=== PATIENT | female | born 1960 | race African-American/Black ===

== ENCOUNTER 2018-03-23 21:38 | Emergency (ER) | payer OTHER, BC ==
[2018-03-23 21:48] VITALS: BP 158/97
--- NOTE | 2018-03-24 00:08 | EDM.PDOC ---
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 difficile this past 03/19/2018. She states that she developed diarrhea that same day, which lasted 3 days. She had a subjective fever at the time, along with slight nausea, but no emesis. After 3 days, her symptoms resolved, and did not recur. Currently, she is completely asymptomatic. The patient reports that she has not been on any antibiotics since last year. The patient's PCP is Dr. Kirkpatrick. 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 Endocrine/Metabolic History: Reports: Obesity/BMI 30+ - Past Surgical History Female Surgical History: Reports: Hysterectomy, Salpingo-Oophorectomy Social & Family History - Family History Family Medical History: Noncontributory - Tobacco Use Smoking Status *Q: Never Smoker Second Hand Smoke Exposure: No - Caffeine Use Caffeine Use: Reports: Coffee - Alcohol Use Alcohol Use History: No - Recreational Drug Use Recreational Drug Use: No - Living Situation & Occupation Living situation: Reports: , with Spouse 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 ED EXAM, GENERAL - Physical Exam Exam: See Below Exam Limited By: No Limitations General Appearance: Alert, WD/WN, No Apparent Distress Eye Exam: Bilateral Eye: Normal Inspection Ears: Normal External Exam, Hearing Grossly Normal Nose: Normal Inspection, No Blood Throat/Mouth: Normal Inspection, Normal Lips, Normal Voice, No Airway Compromise Head: Atraumatic, Normocephalic Neck: Normal Inspection, Full Range of Motion Respiratory/Chest: No Respiratory Distress, Lungs Clear, Normal Breath Sounds, No Accessory Muscle Use Cardiovascular: Normal Peripheral Pulses, Regular Rate, Rhythm, No Gallop, No JVD, No Murmur, No Rub Peripheral Pulses: 4+: Radial (L), Radial (R) GI/Abdominal: Normal Bowel Sounds, Soft, Non-Tender, No Organomegaly, No Distention, No Abnormal Bruit, No Mass, Other (Obese) (Female) Exam: Deferred Rectal (Female) Exam: Deferred Back Exam: Normal Inspection, Full Range of Motion, NT Extremities: Normal Inspection, Normal Range of Motion, Non-Tender, Normal Capillary Refill, No Pedal Edema Neurological: Alert, Oriented, Normal Cognition, No Motor/Sensory Deficits Psychiatric: Normal Affect Skin Exam: Warm, Dry, Intact, Normal Color, No Rash Course - Vital Signs Last Recorded V/S: Last Vital Signs Temp 36.0 C 03/23/18 21:43 Pulse 58 L 03/23/18 21:43 Resp 18 03/23/18 21:43 BP 158/97 H 03/23/18 21:43 Pulse Ox 97 03/23/18 21:43 - Re-Assessments/Exams Free Text/Narrative Re-Assessment/Exam: 03/24/18 00:03 As above, the patient reports having 3 days of diarrhea after being exposed to C. difficile, however, she has not been on any antibiotics since last year, and her symptoms resolved spontaneously. She is currently asymptomatic. I explained to the patient that one does not get a C. difficile infection merely by being exposed to it, when not also exposed to antibiotics. I believe the patient understands the situation. Departure - Departure Time of Disposition: 00:04 Disposition: Home, Self-Care 01 Condition: Good Clinical Impression: Concern about disease without diagnosis - Discharge Information Referrals: Minh Kirkpatrick MD [Physician] - Forms: ED Department Discharge Additional Instructions: You were seen in the emergency room over concern of C. difficile infection after being exposed to C. difficile. As explained, one cannot get a C. difficile infection just by being exposed to C. difficile. Follow-up with your PCP, Dr. Brooks, as needed. If any other problems, please do not hesitate to return to the ER.
== END 2018-03-24 00:14 | disposition home or self-care (01) ==
LOC: JD.ED 21:38
DX: Z71.1 Person with feared health complaint in whom no diagnosis is made (principal); E78.00 Pure hypercholesterolemia, unspecified; I10 Essential (primary) hypertension; Z79.899 Other long term (current) drug therapy
CPT/HCPCS: 99284

== ENCOUNTER 2019-07-12 01:03 | Emergency (ER) | payer BC, OTHER ==
[2019-07-12 01:13] VITALS: PULSE 64
[2019-07-12] MEDS ORDERED: hydrALAZINE 20 MG/ML SDV IVPUSH ONE (01:28)
[2019-07-12] MEDS ORDERED: Sodium Chloride 0.9% 10 ML Syringe FLUSH PRN (01:28)
--- NOTE | 2019-07-12 01:28 | EDM.PDOC ---
ED HPI GENERAL MEDICAL PROBLEM - General Chief Complaint: Headache Stated Complaint: headache Time Seen by Provider: 07/12/19 01:20 Source of Information: Reports: Patient History Limitations: Reports: No Limitations - History of Present Illness INITIAL COMMENTS - FREE TEXT/NARRATIVE: 58-year-old female of -Citizen [place] ancestry presents to the ED with a persistent headache that worsens usually in the evenings for the last several days. It's been going on for about 2 weeks for sure. She believes it's partly due to side effects from her blood pressure medications which she is on too low. His use of one of the blood pressure medications cause quite significant headaches and she discontinued it. Was replaced with what she was on before on 02 July but she doesn't know the names of the medication. Once she takes twice daily for blood pressure control and 1 she takes once daily in the morning. His most time in the daytime her headache is tolerable. Usually headache worsens in the evening between 2000 and 2:00 in the morning. Today it' s diffuse headache pressure throbbing pounding or pressure is elevated at 190/ 112. She has no visual field changes. She doesn't feel off balance or kilter. No associated nausea or vomiting. She believes it's due to side effect of her medication. Back or else the blood pressure itself is poorly controlled. Onset: Other (Been having headaches off and on for the last 3 weeks.) Onset Date: 06/19/19 Duration: Day(s):, Waxing/Waning (Usually worse in the evenings from 2000 hrs. to midnight.) Location: Reports: Head (Diffuse headache as if it's in a vice. Throbbing headache) Quality: Reports: Ache, Pressure, Throbbing Severity: Moderate (78 out of 10.) Improves with: Reports: None Worsens with: Reports: None Context: Denies: Activity, Exercise, Lifting, Sick Contact, Trauma, Other Associated Symptoms: Reports: Headaches. 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 Endocrine/Metabolic History: Reports: Obesity/BMI 30+ - Past Surgical History Female Surgical History: Reports: Hysterectomy, Salpingo-Oophorectomy Social & Family History - Family History Family Medical History: Noncontributory - Tobacco Use Smoking Status *Q: Never Smoker - Caffeine Use Caffeine Use: Reports: None - Recreational Drug Use Recreational Drug Use: No - Living Situation & Occupation Living situation: Reports: , with Spouse Occupation: Employed ([employer]) ED [facility] GENERAL - Review of Systems Review Of Systems: See Below Constitutional: Reports: Fatigue. Denies: Fever, Chills, Malaise, Weakness HEENT: Reports: No Symptoms Respiratory: Denies: Shortness of Breath, Cough Cardiovascular: Reports: Blood Pressure Problem. Denies: Chest Pain, Claudication, Dyspnea on Exertion, Edema, Lightheadedness, Orthopnea, Palpitations Endocrine: Reports: Fatigue GI/Abdominal: Reports: No Symptoms : Reports: No Symptoms Musculoskeletal: Reports: Joint Pain (Knees hips low back at times) Skin: Reports: No Symptoms Neurological: Reports: Headache. Denies: Confusion, Dizziness, Numbness, Paresthesia, Pre-Existing Deficit, Seizure, Syncope, Tingling, Trouble Speaking , Difficulty Walking, Weakness, Gait Disturbance, Other Psychiatric: Reports: No Symptoms Hematologic/Lymphatic: Reports: No Symptoms Immunologic: Reports: No Symptoms - Physical Exam Exam: See Below Exam Limited By: No Limitations General Appearance: Alert, WD/WN, No Apparent Distress, Other (Essential afebrile temperatures 8 incorrect as it's too low at 35.7. Pulse is 64 respiratory 16 BP 180 /112. Pulse ox is 96%.) Eye Exam: Bilateral Eye: Normal Fundi (Ration does have AV nicking bilaterally.) , Normal Inspection, PERRL Ears: Other ( has auto sclerosis bilaterally with thickening of the tympanic membrane and whitening of both tympanic membranes.) Nose: Other (Mild nasal congestion bilaterally due to allergic rhinitis with swollen medial turbinates. No sign of active infection.) Throat/Mouth: Normal Inspection, Normal Lips, Normal Teeth, Normal Oropharynx Head Exam: Atraumatic, Normocephalic Neck: Normal Inspection, Supple, Non-Tender, Full Range of Motion. No: Lymphadenopathy (L), Lymphadenopathy (R) Respiratory/Chest: No Respiratory Distress, Lungs Clear, Normal Breath Sounds, No Accessory Muscle Use, Chest Non-Tender Cardiovascular: Normal Peripheral Pulses, Regular Rate, Rhythm, No Edema, No Gallop, No Murmur, No Rub GI/Abdominal: Normal Bowel Sounds, Soft, Non-Tender, No Organomegaly, No Abnormal Bruit, No Mass, Pelvis Stable Rectal (Female) Exam: Normal Exam Neuro Exam (Abbreviated): Alert, Oriented, CN II-XII Intact, Normal Cognition, Normal Gait, No Motor/Sensory Deficits, Other (Finger to nose assessment is normal. Rapid altering movements are normal. Romberg negative. Cranial nerves II -12 are intact.) Extremities: Normal Inspection, Normal Range of Motion, Non-Tender, No Pedal Edema, Normal Capillary Refill Skin Exam: Warm, Dry, Intact, Normal Color, No Rash Course - Vital Signs Last Recorded V/S: Last Vital Signs Temp 35.7 C 07/12/19 01:07 Pulse 64 07/12/19 01:07 Resp 16 07/12/19 01:07 BP 130/85 07/12/19 02:54 Pulse Ox 96 07/12/19 01:07 - Orders/Labs/Meds Labs: Laboratory Tests 07/12/19 Range/Units 01:35 Sodium 138 (136-145) mEq/L Potassium 3.4 L (3.5-5.1) mEq/L Chloride 103 (98-107) mEq/L Carbon Dioxide 28 (21-32) mEq/L Anion Gap 10.4 (5-15) BUN 24 H (7-18) mg/dL Creatinine 1.0 (0.55-1.02) mg/dL Est Cr Clr Drug Dosing 56.53 mL/min Estimated GFR (MDRD) > 60 (>60) mL/min BUN/Creatinine Ratio 24.0 H (14-18) Glucose 125 H (74-106) mg/dL Calcium 9.3 (8.5-10.1) mg/dL Total Bilirubin 0.3 (0.2-1.0) mg/dL AST 15 (15-37) U/L ALT 23 (14-59) U/L Alkaline Phosphatase 69 (46-116) U/L Total Protein 7.9 (6.4-8.2) g/dl Albumin 3.9 (3.4-5.0) g/dl Globulin 4.0 gm/dL Albumin/Globulin Ratio 1.0 (1-2) Meds: Medications Discontinued Medications Generic Name Dose Route Start Last Admin Trade Name Marcq PRN Reason Stop Dose Admin Hydralazine HCl 10 mg 07/12/19 01:28 07/12/19 01:36 Apresoline IVPUSH 07/12/19 01:29 10 mg ONETIME ONE Administration Hydromorphone HCl 0.5 mg 07/12/19 01:29 07/12/19 01:40 Dilaudid IVPUSH 07/12/19 01:30 0.5 mg ONETIME ONE Administration Metoclopramide HCl 7.5 mg 07/12/19 01:29 07/12/19 01:38 Reglan IVPUSH 07/12/19 01:30 7.5 mg ONETIME ONE Administration Sodium Chloride 10 ml 07/12/19 01:28 07/12/19 01:39 Saline Flush FLUSH 10 ml ASDIRECTED PRN Administration Keep Vein Open Terazosin HCl 1 mg 07/12/19 02:41 07/12/19 02:54 Hytrin PO 07/12/19 02:42 1 mg ONETIME ONE Administration - Radiology Interpretation Free Text/Narrative:: 58-year-old female presents to the ED with a persistent headache. She's had a headache off and on for the last 3 weeks postop and occurs in the evening between 2000 hrs. and midnight. She's been change in blood pressure medications as of late and recently changed back to what she used to be on because the medication she was prescribed gave her headache. She didn't bring her blood pressure medications with therefore it therefore it's impossible for me to know what she is currently taking and whether or not she is having side effects from the medication. Suggest with daily headache that is likely due to side effect of medication or uncontrolled hypertension. Since her blood pressure is elevated at 180 /112. Going to give her hydralazine 10 mg IV. Her neuro exam is normal. CBC will be drawn any urinalysis will be obtained. I'm also going to give her Dilaudid 0.5 mg and Reglan 7.5 mg for headache relief. - Re-Assessments/Exams Free Text/Narrative Re-Assessment/Exam: 07/12/19 02:06 blood pressure is dropped to 141/66. We are able to access her med list through [facility] in [place]. It appears that she is on hydrochlorothiazide 25 mg twice daily and metoprolol succinate 200 mg once daily in the morning. It would therefore make sense that her medication is wearing off towards the evening and she is developing headaches due to elevated blood pressure in the evenings. I can find nothing in her notes to indicate what other medication she may have been on the low back in 2014 she was on lisinopril 10 mg daily. I suspect headaches may well been precipitated by Norvasc. It appears that she is going to need a another antihypertensive it would be better suited if she was only on hydrochlorothiazide once daily. I will select Hytrin and start with 2 mg dosage once daily at suppertime. This might provide provide better 24-hour relief of hypertension. Ideally the patient should be on an nicky or arm inhibitor as -[place]izen [place] patients are more prone to developing proteinuria from hypertension. Patient reports her headache is 70% better with the reduction in blood pressure and with the small dose of Dilaudid. 07/12/19 02:16Labs do reveal a sodium of 138 potassium slightly low at 3.4. Chloride 103 bicarbonate 28 and a gap is 10.4 BUN is 24 with a creatinine of 1.0. GFR is greater than 60. Therefore renal function is normal. Glucose slightly elevated 125. Calcium is 9.3. Liver function is normal. 07/12/19 02:41 patient reports that she is headache free blood pressure is 120/ 67. Impossible tell if her headache was due to elevated blood pressure or the headache was causing an elevated blood pressure due to pain response. The air in the side of thinking that her blood pressure is elevating almost every evening suggesting non-24-hour control of blood pressure. I'm going to have her discontinue one of the hydrochlorothiazide pills in the evening and replaced with Hytrin 2 mg daily. I will give her 14 tablets for trial of medication and she will follow up with Shelley Plascencia in 10-12 days time. I'm going to give a 1 mg dose at this time as the Apresoline will wear off and blood pressure will tend to spike within the next 3 hours. Departure - Departure Time of Disposition: 02:43 Disposition: Home, Self-Care 01 Condition: Fair Clinical Impression: Tension-type headache, Essential hypertension - Discharge Information *PRESCRIPTION DRUG MONITORING PROGRAM REVIEWED*: Not Applicable *COPY OF PRESCRIPTION DRUG MONITORING REPORT IN PATIENT YESY: Not Applicable Prescriptions: Terazosin [Hytrin] 2 mg PO BEDTIME #14 cap Instructions: Tension Headache, Adult, [id number], Hypertension Referrals: Shelley Plascencia PA-C [Primary Care Provider] - Forms: ED Department Discharge Additional Instructions: Evaluation the emergency room tonight in regards to recurrent nightly headache for the last 2-3 weeks. Associated marked elevation of your blood pressure 186/ 112. As you indicated it seems that you develop a headache almost every evening particular after 2000 hrs. You're treated in the ED with a dose of Dilaudid 0.5 mg with Reglan 7.5 mg and 10 mg of hydralazine IV to bring her blood pressure under control. Zain worked very well in terms of blood pressure was down to 120 /67 at the time of discharge and headache was completely gone. At this time it' s impossible to tell whether the pressure is poorly controlled causing the headaches although this is highly suspect since it comes back every evening indicating that blood pressure is not controlled well 24 hours per day. It is still possible that the headache in terms due to pain response elevated blood pressure. There is likely a bit of both. I'm going to treat you with a new medicine called Hytrin 2 mg dosage at suppertime or after supper nightly for the next 2 weeks to see if this prevents the headaches from reoccurring. Social provide much better control of your blood pressure over 24-hour period of time. You are to discontinue your hydrochlorothiazide pill that you take in the evening. Take only one of these daily in the morning as usually do with your metoprolol tablet in the morning 200 mg strength. Please follow up with Shelley Vigil your primary care provider somewhere in the next 10-12 days to see how your blood pressures getting along and headache control.
[2019-07-12] MEDS ORDERED: Metoclopramide 10 MG/2 ML SDV IVPUSH ONE (01:29)
[2019-07-12] MEDS ORDERED: HYDROmorphone 0.5 MG/0.5 ML Syringe IVPUSH ONE (01:29)
[2019-07-12] MEDS ORDERED: Terazosin 1 MG Cap PO ONE (02:41)
[2019-07-12 02:55] VITALS: BP 130/85
== END 2019-07-12 02:58 | disposition home or self-care (01) ==
LOC: JD.ED 01:03
DX: G44.209 Tension-type headache, unspecified, not intractable (principal); I10 Essential (primary) hypertension; Z79.899 Other long term (current) drug therapy
CPT/HCPCS: 36415; 80053; 96374; 96375; 99284; A9270; J0360; J1170; J2765